=== PATIENT | male | born 1945 ===

== ENCOUNTER 2019-06-14 13:18 | Outpatient (CLI) | payer OTHER, SELFPAY ==
--- NOTE | 2019-06-14 13:29 | XR_ITS ---
WS: [id number] XR hip LT 2-3V wo/w pel* [id number] REASON FOR EXAM: left hip pain FINDINGS: Mild narrowing of the acetabular femoral head surface. There is no fractures the head, neck, or intertrochanteric areas of the left hip. The superior and inferior ramus of pubic are normal. There is heavy arteriosclerotic changes. XR/XR hip LT 2-3V wo/w pel* [id number] IMPRESSION: Early osteoarthritic changes of the left hip.
== END 2019-06-14 13:19 | disposition home or self-care (01) ==
LOC: RAD 13:23
PROVIDERS: Family Provider Internal Medicine; PCP Internal Medicine; Visit Provider Internal Medicine
DX: M16.12 Unilateral primary osteoarthritis, left hip (principal); M25.552 Pain in left hip
CPT/HCPCS: 73502

== ENCOUNTER → 2019-11-26 12:35 | Outpatient (BNVA) | payer OTHER, SELFPAY | PROVIDERS: Family Provider Internal Medicine; PCP Internal Medicine; Referring Provider Family Medicine; Visit Provider Specialist | DX: M79.7 Fibromyalgia (principal); G43.711 Chronic migraine without aura, intractable, with status migrainosus; M54.16 Radiculopathy, lumbar region; E11.9 Type 2 diabetes mellitus without complications; I10 Essential (primary) hypertension; Z87.891 Personal history of nicotine dependence; Z95.820 Peripheral vascular angioplasty status with implants and grafts | CPT/HCPCS: 20552; 99205; J1030; J3490 ==

== ENCOUNTER → 2020-04-30 12:22 | Outpatient (BNVA) | payer OTHER, SELFPAY | PROVIDERS: Family Provider Internal Medicine; PCP Family Medicine; Visit Provider Specialist | DX: M54.16 Radiculopathy, lumbar region (principal); G43.711 Chronic migraine without aura, intractable, with status migrainosus; I99.8 Other disorder of circulatory system; Z87.891 Personal history of nicotine dependence | CPT/HCPCS: 99214 ==

== ENCOUNTER 2020-05-23 15:41 | Outpatient (CLI) | payer OTHER, SELFPAY ==
--- NOTE | 2020-05-23 15:59 | CTR_ITS ---
PROCEDURE INFORMATION: Exam: CT Lumbar Spine Without Contrast Exam date and time: 05/23/2020 4:04 PM Age: 75 years old Clinical indication: Low back pain; Additional info: M54.16 - radiculopathy, lumbar region TECHNIQUE: Imaging protocol: Computed tomography images of the lumbar spine without contrast. Radiation optimization: All CT scans at this facility use at least one of these dose optimization techniques: automated exposure control; mA and/or kV adjustment per patient size (includes targeted exams where dose is matched to clinical indication); or iterative reconstruction. COMPARISON: No relevant prior studies available. RADIATION DOSE METRICS: Total DLP (mGy-cm): 2478.77 FINDINGS: Vertebrae: No compression fractures. Large bridging enthesophytes are noted at multiple levels. 5 mm retrograde subluxation of L4 on L5. Severe degeneration of the L4-L5 disc. Severe spinal canal stenosis at this level. Bilateral L5 spondylolysis, associated with grade 1 L5-S1 spondylolisthesis. Advanced L5-S1 disc degeneration noted. Discs/Spinal canal/Neural foramina: No significant disc abnormality at L2-L3 and L3-L4. Severe disc degeneration at L1-L2, L4-L5, and L5-S1. Spinal canal stenosis noted at L1-L2 and L4-L5. Advanced neural foraminal stenosis bilaterally at L5-S1. Soft tissues: Unremarkable. CT/CT lumbar spine wo con* [id number] IMPRESSION: 1. 5 mm retrograde subluxation of L4 on L5. Severe degeneration of the L4-L5 disc. Severe spinal canal stenosis at this level. 2. Bilateral L5 spondylolysis, associated with grade 1 L5-S1 spondylolisthesis. Advanced L5-S1 disc degeneration noted. No spinal canal stenosis. Severe bilateral neural foraminal stenosis. 3. Spondylitic changes result in severe spinal stenosis at L1-L2. Radiation Dose CTDIVOL = (mGy): DLP = 2478.77 (mGy-cm)
== END 2020-05-23 15:42 | disposition home or self-care (01) ==
LOC: US 15:42
PROVIDERS: PCP Family Medicine; Visit Provider Specialist
DX: M54.16 Radiculopathy, lumbar region (principal); M54.5 Low back pain; M43.17 Spondylolisthesis, lumbosacral region; M47.816 Spondylosis without myelopathy or radiculopathy, lumbar region
CPT/HCPCS: 72131

== ENCOUNTER → 2020-10-28 13:46 | Outpatient (BNVA) | payer OTHER, SELFPAY | PROVIDERS: PCP Family Medicine; Visit Provider Specialist | DX: G43.019 Migraine without aura, intractable, without status migrainosus (principal); G40.309 Generalized idiopathic epilepsy and epileptic syndromes, not intractable, without status epilepticus; M54.16 Radiculopathy, lumbar region; M48.062 Spinal stenosis, lumbar region with neurogenic claudication; I99.8 Other disorder of circulatory system; Z87.891 Personal history of nicotine dependence | CPT/HCPCS: 99215 ==

== ENCOUNTER 2021-04-07 09:44 | Outpatient (CLI) | payer OTHER, SELFPAY | END 2021-04-07 09:45 | disposition home or self-care (01) | LOC: WOUND 09:46 | PROVIDERS: PCP Family Medicine; Visit Provider Emergency Medicine | DX: L89.151 Pressure ulcer of sacral region, stage 1 (principal); E11.9 Type 2 diabetes mellitus without complications; Z87.891 Personal history of nicotine dependence | CPT/HCPCS: 99213 ==

== ENCOUNTER → 2022-01-19 15:07 | Outpatient (BNVA) | payer OTHER, SELFPAY | PROVIDERS: PCP Family Medicine; Referring Provider Family Medicine; Visit Provider Orthopaedic Surgery | DX: M48.062 Spinal stenosis, lumbar region with neurogenic claudication (principal); M43.16 Spondylolisthesis, lumbar region; M47.816 Spondylosis without myelopathy or radiculopathy, lumbar region | CPT/HCPCS: 72110; 99203; 99204 ==

== ENCOUNTER 2022-07-12 13:19 | Outpatient (CLI) | payer OTHER, SELFPAY ==
--- NOTE | 2022-07-12 13:00 | MR_ITS ---
WS: [id number] MRI LUMBAR SPINE NONCONTRAST TECHNIQUE: Sagittal T1, T2 and STIR imaging. Axial T1 and T2 imaging. CLINICAL INFORMATION: lumbar stenosis COMPARISON: CT lumbar May 23, 2020 FINDINGS: Mild lumbar curve. Straightening with slight worsening normal lumbar lordosis. Slight retrolisthesis L4 on L5. Disc space narrowing worse L4-L5. Grade 1 anterolisthesis L5 on S1 measuring 5.1 mm. Bilate ral chronic spondylolysis L5-S1. L1-L2: Severe central canal stenosis due to disc bulging in combination with facet arthropathy ligame ntum flavum hypertrophy. Moderate to advanced facet arthropathy. Impingement traversing LEFT L2 nerve root. Mild LEFT foraminal narrowing. L2-L3: Mild annular bulging. Spinal canal is patent. Mild facet arthropathy. Foramen are patent. L3-L4: Mild annular bulging with slight effacement of the ventral thecal sac. Moderate facet arthropa thy. Mild LEFT greater than RIGHT foraminal narrowing due to eccentric disc bulging. Moderate facet a rthropathy. L4-L5: High-grade severe central canal stenosis. Advanced facet arthropathy ligamentum flavum hypertr ophy. Slight retrolisthesis. Moderate to severe bilateral foraminal narrowing worse in the RIGHT. L5-S1: Grade 1 anterolisthesis with chronic spondylolysis. Spinal canal is patent. Advanced facet art hropathy. Mild bilateral foraminal narrowing. Visualized pelvic bony structures: Normal. Paravertebral soft tissues: Normal. MR/MR lumbar spine wo con* [id number] IMPRESSION: 1. 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 This is similar to the prior CT. 2. High-grade severe stenosis L4-L5 with slight retrolisthesis. This is simila r to the prior CT. 3. Grade 1 anterolisthesis L5 on S1 with chronic spondylolysis. 4. Moderate to severe bilateral L4-L5 foraminal narrowing. 5. Moderate to advanced facet arthropathy worse L4-L5 and L5-S1.
== END 2022-07-12 13:20 | disposition home or self-care (01) ==
LOC: RAD 13:23
PROVIDERS: PCP Family Medicine; Visit Provider Orthopaedic Surgery
DX: M48.062 Spinal stenosis, lumbar region with neurogenic claudication (principal); M54.16 Radiculopathy, lumbar region; M43.07 Spondylolysis, lumbosacral region
CPT/HCPCS: 72148